=== PATIENT | female | born 1995 | race African-American/Black ===

== ENCOUNTER 2021-10-03 07:23 | Emergency (ER) | payer MEDICAID ==
[~2021-10-03] VITALS: Ht 154.9 cm; Wt 114.0 kg
[2021-10-03] MEDS ORDERED: ONDANSETRON 4MG ODT PO ONE (08:45)
[2021-10-03] MEDS ORDERED: IBUPROFEN 400MG TABLET PO ONE (08:45)
[2021-10-03 11:06] VITALS: BP 137/84
[2021-10-03] MEDS ORDERED: IBUP-2028 MT (11:37)
== END 2021-10-03 11:06 | disposition home or self-care (01) ==
LOC: ER 07:39
DX: R05.8 Other specified cough (principal); R51.9 Headache, unspecified; R11.10 Vomiting, unspecified; R03.0 Elevated blood-pressure reading, without diagnosis of hypertension
CPT/HCPCS: 71045; 81025; 99283; Q0162

== ENCOUNTER 2022-06-21 04:42 | Emergency (ER) | payer MEDICAID ==
[~2022-06-21] VITALS: Ht 162.6 cm; Wt 110.5 kg
[~2022-06-21 04:42] MED LIST: IBUP-2028 MT
[2022-06-21 04:52] VITALS: BP 144/87
== END 2022-06-21 07:36 | disposition left against medical advice (07) ==
LOC: ER 04:42
DX: Z53.21 Procedure and treatment not carried out due to patient leaving prior to being seen by health care provider (principal)